=== PATIENT | female | born 1980 | race Caucasian/White ===

== ENCOUNTER 2017-12-20 21:58 | Emergency (ER) | payer SELFPAY ==
[2017-12-20] MEDS ORDERED: MORPHINE SULFATE INJ 10 MG/ML VIAL IV ONE (22:09)
[2017-12-20] MEDS ORDERED: PROMETHAZINE HCL INJ 12.5 MG in SODIUM CHLORIDE 0.9% 50ML 50 ML IVPB ONE (22:09)
[2017-12-20] MEDS ORDERED: KETOROLAC TROMETHAMINE INJ 30 MG/ML VIAL IV ONE (22:09)
[2017-12-20] MEDS ORDERED: SODIUM CHLORIDE 0.9% 1000ML 500 ML IVS ONE (22:13)
[2017-12-20] MEDS ORDERED: SODIUM CHLORIDE 0.9% 50ML 50 ML ONE (22:15)
[2017-12-20] MEDS ORDERED: PROMETHAZINE HCL INJ 25 MG/ML VIAL ONE (22:15)
[2017-12-20 23:29] VITALS: O2SAT 99
--- NOTE | 2017-12-20 23:31 | RAD ---
PROCEDURE: KUB Clinical History: suspected right sided kidney stone Indication: Same as above Comparison: None Technique: Single supine view of the abdomen and pelvis. Findings: There is no gross evidence of free air in the abdomen or the pelvis on this single supine view of the abdomen and pelvis. The small and large bowel gas pattern does not show any evidence of obstruction, ileus or bowel wall thickening. There is no visualization of radiopaque calculi in the outline of the urinary tract. There is mild constipation. Impression: There is no visualization of radiopaque calculi in the outline of the urinary tract. Location of Interpretation: [id number] Electronically signed by: Houston Alfred MD 12/20/2017 11:30 PM CDT Workstation: [id number]
--- NOTE | 2017-12-20 23:42 | ED.PDOC ---
History of Present Illness - General Chief Complaint: Abdominal Pain Stated Complaint: lower abd pain, hx kidney stones Time Seen by Provider: 12/20/17 22:06 Source: patient Exam Limitations: no limitations - History of Present Illness Initial Comments: the patient is a 37-year-old female presented to the emergency room secondary to acute onset right flank and lower abdominal pain. It was associated with 2 episodes of vomiting. She has had some dysuria and some frequency since then. She cannot find a comfortable position. Pain is severe. No fever. No diarrhea. No constipation. Onset was abrupt. Timing/Duration: 1-3 hours Severity: severe Improving Factors: nothing Worsening Factors: nothing Associated Symptoms: malaise, nausea/vomiting Allergies/Adverse Reactions: Allergies NO KNOWN ALLERGY Allergy (Verified 12/20/17 22:05) Home Medications: Ambulatory Orders Tramadol HCl 50 mg PO Q8HR PRN #20 tab 12/20/17 Review of Systems - Review of Systems Constitutional: States: no symptoms reported EENTM: States: no symptoms reported Respiratory: States: no symptoms reported Cardiology: States: no symptoms reported Gastrointestinal/Abdominal: States: see HPI Genitourinary: States: see HPI, frequency, pain Musculoskeletal: States: back pain Skin: States: no symptoms reported Neurological: States: no symptoms reported Endocrine: States: no symptoms reported All other Systems: No Change from Baseline Past Medical History (General) - Patient Medical History Hx Asthma: No Hx Congestive Heart Failure: Yes - after delivery of her daughter Surgical History: no surgical history - Vaccination History Hx Tetanus, Diphtheria Vaccination: No Hx Influenza Vaccination: No Hx Pneumococcal Vaccination: No Immunizations Up to Date: No - Social History Hx Tobacco Use: Yes Hx Alcohol Use: No Hx Substance Use: Yes Hx Depression: No - Triage Comment ED Triage Comment: Pt reports she started having sharp lower abd pain about an hour ago. She was resting and had sudden jacob stabbing pain. Pt report she has hx kidney stones. 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 Family Medical History - Family History Mother Family History: Unknown Physical Exam - Physical Exam General Appearance: Alert, Obvious distress Eye Exam: bilateral normal Ears, Nose, Throat: hearing grossly normal, normal ENT inspection Neck: full range of motion, supple Respiratory: lungs clear, normal breath sounds, no respiratory distress, no accessory muscle use Cardiovascular/Chest: normal peripheral pulses, regular rate, rhythm, no edema Peripheral Pulses: radial,right: 2+, radial,left: 2+, dorsalis pedis,right: 2+, dorsalis pedis,left: 2+ Gastrointestinal/Abdominal: non tender, soft Rectal Exam: deferred Back Exam: CVA tenderness (R) Extremity: normal range of motion, non-tender, normal inspection, no pedal edema , no calf tenderness, normal capillary refill 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 She has responded well to the medications given here. She needs to keep herself well hydrated. She can take 2 Aleve twice daily for the next 2 or 3 days. Even with the stone passing she will likely have several episodes of recurrent cramping that are mild. She'll be written for tramadol for these times. no evidence of any significant infection in the urinalysis. She does have a mildly elevated calcium on her blood work. This does need to be repeated in a couple of weeks with her primary care doctor and if it persists then she will need a workup for hypercalcemia as this can certainly contribute to new kidney stone formation and other issues if it persists or worsens, depending upon the source. ER warnings were given. - Results/Orders Results/Orders: Laboratory Tests 12/20/17 12/20/17 12/20/17 22:18 22:18 22:18 WBC 14.5 H RBC 4.86 Hgb 13.4 Hct 41.3 MCV 84.9 MCH 27.6 MCHC 32.5 L RDW 14.9 H Plt Count 297 MPV 8.6 Absolute Neuts (auto) 11.10 H Absolute Lymphs (auto) 2.00 Absolute Monos (auto) 1.00 H Absolute Eos (auto) 0.20 Absolute Basos (auto) 0.10 Neutrophils % 77.0 Lymphocytes % 13.9 L Monocytes % 6.6 Eosinophils % 1.5 Basophils % 1.0 Sodium Potassium Chloride Carbon Dioxide Anion Gap BUN Creatinine BUN/Creatinine Ratio Random Glucose Serum Osmolality Calcium Total Bilirubin AST ALT Alkaline Phosphatase Serum Total Protein Albumin Globulin Albumin/Globulin Ratio Urine Color Yellow Urine Appearance Cloudy Urine pH 7.5 Ur Specific [place] 1.020 Urine Protein Negative Urine Glucose (UA) Negative Urine Ketones Negative Urine Blood Trace-intact H Urine Nitrite Negative Urine Bilirubin Negative Urine Urobilinogen 0.2 Ur Leukocyte Esterase Negative Urine RBC 3-5 H Urine WBC 1-3 Ur Epithelial Cells 3-5 Amorphous Sediment 2+ Urine Bacteria Rare Urine Mucus Small Urine HCG, Qual Negative 12/20/17 22:18 WBC RBC Hgb Hct MCV MCH MCHC RDW Plt Count MPV Absolute Neuts (auto) Absolute Lymphs (auto) Absolute Monos (auto) Absolute Eos (auto) Absolute Basos (auto) Neutrophils % Lymphocytes % Monocytes % Eosinophils % Basophils % Sodium 141 Potassium 3.6 Chloride 108 Carbon Dioxide 25 Anion Gap 11.6 L BUN 14 Creatinine 0.89 BUN/Creatinine Ratio 15.7 Random Glucose 116 H Serum Osmolality 282.7 Calcium 11.1 H Total Bilirubin 0.4 AST 23 ALT 26 Alkaline Phosphatase 89 Serum Total Protein 8.0 Albumin 4.3 Globulin 3.7 H Albumin/Globulin Ratio 1.2 Urine Color Urine Appearance Urine pH Ur Specific [place] Urine Protein Urine Glucose (UA) Urine Ketones Urine Blood Urine Nitrite Urine Bilirubin Urine Urobilinogen Ur Leukocyte Esterase Urine RBC Urine WBC Ur Epithelial Cells Amorphous Sediment Urine Bacteria Urine Mucus Urine HCG, Qual KUB shows no acute pathology. Constipation. No evidence of any kidney stone. Departure - Departure Clinical Impression: Ureterolithiasis Disposition: Discharge to Home or Self Care Condition: Fair Departure Forms: ED Discharge - Pt. Copy, Patient Portal Self Enrollment Instructions: Kidney Stones (DC) Diet: regular diet Activity: increase activity as tolerated Prescriptions: Tramadol HCl 50 mg PO Q8HR PRN #20 tab PRN Reason: Moderate To Severe Pain Home Medications: Ambulatory Orders Tramadol HCl 50 mg PO Q8HR PRN #20 tab 12/20/17 Additional Instructions: the patient is a 37-year-old female presenting to emergency room with what appears to be a right-sided ureterolithiasis. She has responded well to the medications given here. She needs to keep herself well hydrated. She can take 2 Aleve twice daily for the next 2 or 3 days. Even with the stone passing she will likely have several episodes of recurrent cramping that are mild. She'll be written for tramadol for these times. no evidence of any significant infection in the urinalysis. She does have a mildly elevated calcium on her blood work. This does need to be repeated in a couple of weeks with her primary care doctor and if it persists then she will need a workup for hypercalcemia as this can certainly contribute to new kidney stone formation and other issues if it persists or worsens, depending upon the source. ER warnings were given.
[2017-12-20 23:58] VITALS: BP 137/87; TEMP 98.2
== END 2017-12-20 23:58 | disposition home or self-care (01) ==
LOC: ER 21:58
DX: N20.1 Calculus of ureter (principal); F15.90 Other stimulant use, unspecified, uncomplicated; Z87.891 Personal history of nicotine dependence
CPT/HCPCS: 74018; 80053; 81001; 81025; 85025; A4216; J1885; J2270; J2550; J7030